=== PATIENT | male | born 1990 | race Caucasian/White ===

== ENCOUNTER 2016-09-28 18:23 | Emergency (ER) | payer MEDICAID ==
[2016-09-28] MEDS ORDERED: LIDOCAINE 1% 50 ML MDV SUBQ STA (19:15)
[2016-09-28] MEDS ORDERED: LIDOCAINE-MPF 1% 5 ML VIAL ONE (19:38)
== END 2016-09-28 20:26 | disposition home or self-care (01) ==
DX: S61.213A Laceration without foreign body of left middle finger without damage to nail, initial encounter (principal); W26.0XXA Contact with knife, initial encounter; F17.200 Nicotine dependence, unspecified, uncomplicated

== ENCOUNTER 2017-04-14 18:02 | Emergency (ER) | payer OTHER, MEDICAID ==
[2017-04-14] MEDS ORDERED: KETOROLAC 60 MG/2 ML VIAL IM STA (18:25)
[2017-04-14] MEDS ORDERED: HYDROcod/ACETAM 5/325 MG TABLET PO STA (18:25)
[2017-04-14] MEDS ORDERED: CYCLOBENZAPRINE 10 MG TABLET PO STA (18:25)
[2017-04-14] MEDS ORDERED: HYDROcod/ACETAM 5/325 MG TABLET ONE (18:33)
[2017-04-14] MEDS ORDERED: KETOROLAC 60 MG/2 ML VIAL ONE (18:33)
[2017-04-14] MEDS ORDERED: CYCLOBENZAPRINE 10 MG TABLET PO ONE (18:33)
--- NOTE | 2017-04-14 19:06 | XRAY Preliminary Report ---
Exam: XR Shoulder 3 View LT IMPRESSION: Normal shoulder radiography. [facility] SITE ID: [id number]
--- NOTE | 2017-04-14 19:08 | XRAY Report ---
EXAM: LEFT SHOULDER RADIOGRAPHY EXAM DATE: 04/14/2017 06:31 PM. CLINICAL HISTORY: Injury. Heavy equipment fell on shoulder. Anterior pain. COMPARISON: None. TECHNIQUE: 3 views. FINDINGS: Bones: Normal. No fracture or bone lesion. Joints: The glenohumeral and acromioclavicular joints are normal. Soft tissues: The visualized hemithorax is unremarkable. No soft tissue swelling. IMPRESSION: Normal shoulder radiography. [facility] Referring Provider Line: [phone] SITE ID: [id number]
--- NOTE | 2017-04-14 19:16 | ED Physician Documentation ---
PD HPI UPPER EXT INJURY - Stated complaint Stated Complaint: LT SHOULDER PX - Chief complaint Chief Complaint: Ext Problem - History obtained from History obtained from: Patient, Family - History of Present Illness Location: Left, Shoulder Type of injury: Blunt / blow (wooden beam fell on shoulder at work) Where injury occurred: Work Timing - onset: How many hours ago (2) Timing - duration: Hours (2) Timing - details: Abrupt onset Pain level max: 8 Pain level now: 8 Improved by: Rest, Ice, Immobilization Worsened by: Moving, Palpating Associated symptoms: No: Weakness, Numbness, Tingling, Swelling Contributing factors: Work related. No: Anticoagulated, Prior ortho surgery, Prosthetic joint Similar symptoms before: Has not had sx before Recently seen: Not recently seen Review of Systems Constitutional: denies: Fever, Chills Nose: denies: Rhinorrhea / runny nose, Congestion Throat: denies: Sore throat Cardiac: denies: Chest pain / pressure, Palpitations Respiratory: denies: Cough, Hemoptysis, Wheezing GI: denies: Nausea, Vomiting, Diarrhea Skin: denies: Rash Musculoskeletal: denies: Neck pain, Back pain Neurologic: denies: Focal weakness, Numbness, Headache PD PAST MEDICAL HISTORY - Past Medical History Past Medical History: Yes Cardiovascular: None Respiratory: Pneumonia Neuro: None Endocrine/Autoimmune: None GI: None : None HEENT: Chronic hearing loss Psych: None Musculoskeletal: None Derm: None - Past Surgical History Past Surgical History: No - Present Medications Home Medications: Ambulatory Orders Medication Instructions Recorded Confirmed Cyclobenzaprine [Flexeril] 10 mg PO TID PRN #20 tablet 04/14/17 Hydrocodone/Acetaminophen 1 - 2 each PO Q6H PRN #14 tablet 04/14/17 [Hydrocodon-Acetaminophen 5-325] Ibuprofen [Motrin] 800 mg PO Q8H PRN #30 tablet 04/14/17 - Allergies Allergies/Adverse Reactions: Allergies Allergy/AdvReac Type Severity Reaction Status Date / Time No Known Drug Allergies Allergy Verified 09/28/16 18:37 - Social History Does the pt smoke?: Yes Smoking Status: Current every day smoker Does the pt drink ETOH?: No Does the pt have substance abuse?: No - Immunizations Immunizations are current?: Yes PD ED PE NORMAL - Vitals Vital signs reviewed: Yes - General General: Alert and oriented X 3, No acute distress - HEENT HEENT: PERRL, Moist mucous membranes - Neck Neck: Supple, no meningeal sign, No bony TTP - Cardiac Cardiac: RRR - Respiratory Respiratory: No respiratory distress, Clear bilaterally - Abdomen Abdomen: Soft, Non tender, Non distended - Back Back: No spinal TTP - Derm Derm: No rash - Extremities Extremities: Other (TTP L trapezial ridge and over AC joint. No deformity. Mild pain with ROM of the shoulder. NVI including the axillary nerve. ) - Neuro Neuro: Alert and oriented X 3 - Psych Psych: Normal mood, Normal affect Results - Vitals Vitals: Vital Signs - 24 hr 04/14/17 04/14/17 18:05 19:29 Temperature 36.7 C Heart Rate 88 84 Respiratory 18 18 Rate Blood Pressure 122/80 126/81 H O2 Saturation 97 98 Oxygen O2 Source Room air - Rads (name of study) L shoulder xray Radiology: Prelim report reviewed, EMP read contemporaneously, See rad report ( normal) PD MEDICAL DECISION MAKING - ED course Complexity details: reviewed results, re-evaluated patient, considered differential, d/w patient ED course: Patient is a 27-year-old male who presents to the emergency department with a left shoulder injury after a beam fell on his shoulder at work. No acute findings on x-ray. Placed in a sling for comfort. Pain well controlled. Patient is well-appearing, nontoxic. Afebrile. Neurovascularly intact. No gross deformity. L and I paperwork filled out. Patient and family counseled regarding signs and symptoms for which I believe and urgent re-evaluation would be necessary. Patient with good understanding of and agreement to plan and is comfortable going home at this time This document was made in part using voice recognition software. While efforts are made to proofread this document, sound alike and grammatical errors may occur. Departure - Departure Disposition: 01 Home, Self Care Clinical Impression: Shoulder pain, left Qualifiers: Chronicity: acute Qualified Code(s): M25.512 - Pain in left shoulder Left shoulder strain Qualifiers: Encounter type: initial encounter Qualified Code(s): S46.912A - Strain of unspecified muscle, fascia and tendon at shoulder and upper arm level, left arm , initial encounter Condition: Good Instructions: ED Shoulder Pain [facility] Follow-Up: Radha Mckeon ARNP [Primary Care Provider] - Within 1 week Prescriptions: Cyclobenzaprine [Flexeril] 10 mg PO TID PRN #20 tablet PRN Reason: Spasms Hydrocodone/Acetaminophen [Hydrocodon-Acetaminophen 5-325] 1 - 2 each PO Q6H PRN #14 tablet PRN Reason: pain Ibuprofen [Motrin] 800 mg PO Q8H PRN #30 tablet PRN Reason: PAIN &/OR FEVER Comments: Return if you worsen. This should improve over the next few days. Wear the sling as needed for pain. Do not drink alcohol or drive while on narcotic pain medicine. Note that many narcotic pain relievers also contain tylenol/acetaminophen. Please ensure that your total dose of acetaminophen from all sources does not exceed 3 grams (3000mg) per day. You may constipated on this medication, take a stool softener such as "Colace" twice a day while you are on it. Also recommend a xpdi-bbm-ebzzdua laxative such as senna or MiraLAX any day that you do not have a bowel movement. If you received narcotic pain medication in the emergency department, do not drive or operate machinery for the next 24 hours. Forms: Activity restrictions Discharge Date/Time: 04/14/17 19:29
[2017-04-14 19:32] VITALS: BP 126/81
== END 2017-04-14 19:29 | disposition home or self-care (01) ==
LOC: ED 18:02
DX: S46.912A Strain of unspecified muscle, fascia and tendon at shoulder and upper arm level, left arm, initial encounter (principal); W20.8XXA Other cause of strike by thrown, projected or falling object, initial encounter; Y92.89 Other specified places as the place of occurrence of the external cause; Y99.0 Civilian activity done for income or pay; F17.200 Nicotine dependence, unspecified, uncomplicated
CPT/HCPCS: 1040M; 73030; 96372; 99283; A9270

== ENCOUNTER 2017-05-16 19:30 | Emergency (ER) | payer OTHER, MEDICAID ==
[2017-05-16 19:43] VITALS: BP 125/77
[2017-05-16] MEDS ORDERED: oxyCOD/ACETAMIN 5 MG/325 MG TABLET PO STA (19:57)
--- NOTE | 2017-05-16 19:59 | ED Physician Documentation ---
PD HPI UPPER EXT INJURY - Stated complaint Stated Complaint: L SHOULDER PAIN - Chief complaint Chief Complaint: Ext Problem - History obtained from History obtained from: Patient - History of Present Illness Location: Other (Something dropped on his shoulder couple months ago at work, he had x-rays then which were negative. It was slowly getting better but without clear recurrent trauma it is become more severe again with posterior shoulder pain and he acutely cannot range it at all.) Review of Systems Constitutional: denies: Fever, Chills Throat: denies: Sore throat Cardiac: denies: Chest pain / pressure, Palpitations Respiratory: denies: Dyspnea, Cough PD PAST MEDICAL HISTORY - Past Medical History Cardiovascular: None Respiratory: Pneumonia Neuro: None Endocrine/Autoimmune: None GI: None : None HEENT: Chronic hearing loss Psych: None Musculoskeletal: None Derm: None - Past Surgical History Past Surgical History: No - Present Medications Home Medications: Ambulatory Orders Medication Instructions Recorded Confirmed Meloxicam [Mobic] 7.5 mg PO BIDWM PRN #15 tablet 05/16/17 Oxycodone HCl/Acetaminophen 1 - 2 tab PO Q4H PRN #15 tablet 05/16/17 [Percocet 5-325 mg Tablet] - Allergies Allergies/Adverse Reactions: Allergies Allergy/AdvReac Type Severity Reaction Status Date / Time No Known Drug Allergies Allergy Verified 05/16/17 19:38 - Social History Does the pt smoke?: Yes Smoking Status: Current every day smoker Does the pt drink ETOH?: No Does the pt have substance abuse?: No - Immunizations Immunizations are current?: Yes PD ED PE NORMAL - Vitals Vital signs reviewed: Yes - General General: Alert and oriented X 3, No acute distress - Neck Neck: Supple, no meningeal sign, No bony TTP - Extremities Extremities: Other (Left shoulder is mildly tender posteriorly, there is no deformity. He is able to abduct to about 30 actively, about 45 passively. Positive supraspinatus testing. NVI in the wrist.) - Neuro Neuro: Alert and oriented X 3, Normal speech - Psych Psych: Normal mood, Normal affect Results - Vitals Vitals: Vital Signs - 24 hr 05/16/17 19:34 Temperature 36.6 C Heart Rate 83 Respiratory 16 Rate Blood Pressure 125/77 O2 Saturation 99 Oxygen O2 Source Room air PD MEDICAL DECISION MAKING - ED course ED course: 27-year-old with signs and symptoms consistent with rotator cuff tendinopathy, repeat x-rays are not indicated at this juncture. Exercises and follow-up with his primary care physician for referral to physical therapy were advised. Departure - Departure Disposition: 01 Home, Self Care Clinical Impression: Shoulder pain, left Qualifiers: Chronicity: acute Qualified Code(s): M25.512 - Pain in left shoulder Condition: Good Record reviewed to determine appropriate education?: Yes Instructions: ED Torn Rotator Cuff Prescriptions: Meloxicam [Mobic] 7.5 mg PO BIDWM PRN #15 tablet PRN Reason: Pain Oxycodone HCl/Acetaminophen [Percocet 5-325 mg Tablet] 1 - 2 tab PO Q4H PRN #15 tablet PRN Reason: Pain Comments: Follow-up with your primary care physician, likely for referral to physical therapy and/or orthopedics if not improving. Do not drink or drive while taking narcotic pain medication. Note that many narcotic pain relievers also contain Tylenol/acetaminophen. Please ensure that your total dose of acetaminophen from all sources does not exceed 3 g (3000 mg) per day. You may get constipated while on this medication. Take a stool softener such as Colace twice a day while you are on it. Also add an ivrc-lol-hwsydpw laxative such as senna or MiraLAX on any day that you do not have a bowel movement. If you received a narcotic pain medication or sedative while in the emergency department, do not drive for the next 24 hours. Forms: Activity restrictions
[2017-05-16] MEDS ORDERED: oxyCOD/ACETAMIN 5 MG/325 MG TABLET PO ONE (20:04)
== END 2017-05-16 20:12 | disposition home or self-care (01) ==
LOC: ED 19:30
DX: M25.512 Pain in left shoulder (principal); F17.200 Nicotine dependence, unspecified, uncomplicated
CPT/HCPCS: 99282; 99283; A9270

== ENCOUNTER 2017-05-19 12:47 | Emergency (ER) | payer MEDICAID ==
[2017-05-19] MEDS ORDERED: KETOROLAC 60 MG/2 ML VIAL IM STA (13:20)
[2017-05-19] MEDS ORDERED: DEXAMETHASONE 10 MG/ML VIAL PO STA (13:20)
[2017-05-19] MEDS ORDERED: KETOROLAC 60 MG/2 ML VIAL ONE (13:25)
[2017-05-19] MEDS ORDERED: DEXAMETHASONE 10 MG/ML VIAL ONE (13:25)
--- NOTE | 2017-05-19 13:59 | XRAY Preliminary Report ---
Exam: XR Shoulder 3 View LT IMPRESSION: Normal shoulder radiography. [facility] SITE ID: [id number]
--- NOTE | 2017-05-19 14:02 | XRAY Report ---
EXAM: LEFT SHOULDER RADIOGRAPHY EXAM DATE: 05/19/2017 01:41 PM. CLINICAL HISTORY: Deltoid pain and pain over suprspinatous. . COMPARISON: 04/14/2017. TECHNIQUE: 3 views. FINDINGS: Bones: Normal. No fracture or bone lesion. Joints: The glenohumeral and acromioclavicular joints are normal. Soft tissues: The visualized hemithorax is unremarkable. No soft tissue swelling. IMPRESSION: Normal shoulder radiography. [facility] Referring Provider Line: [phone] SITE ID: [id number]
--- NOTE | 2017-05-19 14:16 | ED Physician Documentation ---
PD HPI UPPER EXT INJURY - Stated complaint Stated Complaint: SHOULDER PX - Chief complaint Chief Complaint: Ext Problem - History obtained from History obtained from: Patient, Family - History of Present Illness Location: Left, Shoulder Type of injury: Blunt / blow Where injury occurred: Work Timing - onset: How many months ago (2) Timing - details: Abrupt onset, Still present Improved by: Rest, Ice, Immobilization Worsened by: Moving, Palpating Associated symptoms: No: Weakness, Numbness, Tingling, Swelling Similar symptoms before: Diagnosis (rotator cuff injury) Recently seen: Emergency Dept (4 days ago with re-injury to the area) - Additonal information Additional information: 27-year-old male that works at [employer] dropped a 4 x 6 wooden beam on his left shoulder 5 weeks ago. He had pain in the area initially was seen in the emergency department had imaging done Without evidence of fracture. He has been back to work and has been favoring his shoulder and about 4 days ago he noted a crunching sound in his shoulder with some heavy lifting and since then has had increased unrelenting pain in the shoulder. He has returned to the emergency department. He did get some pain medication that helped with the pain but he is not able to move his shoulder through any reasonable range of motion. On the second visit he was diagnosed with a injury to the rotator cuff. He is not able to hold the arm in abduction by himself. Review of Systems Constitutional: denies: Fever, Chills Eyes: denies: Decreased vision Ears: denies: Ear pain Nose: denies: Congestion Throat: denies: Sore throat Cardiac: denies: Chest pain / pressure, Palpitations Respiratory: denies: Dyspnea, Cough GI: denies: Abdominal Pain, Nausea, Vomiting : denies: Dysuria Skin: denies: Rash Musculoskeletal: reports: Neck pain, Back pain, Extremity pain, Joint pain. denies: Extremity swelling, Joint swelling Neurologic: reports: Numbness (To the second third and fourth digit of the left hand). denies: Generalized weakness, Focal weakness PD PAST MEDICAL HISTORY - Past Medical History Cardiovascular: None Respiratory: Pneumonia Neuro: None Endocrine/Autoimmune: None GI: None : None HEENT: Chronic hearing loss Psych: None Musculoskeletal: None Derm: None - Past Surgical History Past Surgical History: No - Present Medications Home Medications: Ambulatory Orders Medication Instructions Recorded Confirmed Meloxicam [Mobic] 7.5 mg PO BIDWM PRN #15 tablet 05/16/17 05/19/17 Oxycodone HCl/Acetaminophen 1 - 2 tab PO Q4H PRN #15 tablet 05/16/17 05/19/17 [Percocet 5-325 mg Tablet] oxyCODONE [Roxicodone] 5 - 10 mg PO Q4-6H PRN #15 tablet 05/19/17 - Allergies Allergies/Adverse Reactions: Allergies Allergy/AdvReac Type Severity Reaction Status Date / Time No Known Drug Allergies Allergy Verified 05/16/17 19:38 - Social History Does the pt smoke?: Yes Smoking Status: Current every day smoker Does the pt drink ETOH?: No Does the pt have substance abuse?: No - Immunizations Immunizations are current?: Yes PD ED PE NORMAL - Vitals Vital signs reviewed: Yes (normal ) - General General: Alert and oriented X 3, Well developed/nourished, Other (Appears to be in pain) - HEENT HEENT: Atraumatic, PERRL - Neck Neck: Supple, no meningeal sign, Other (There is some bony tenderness over the lower cervical spine ) - Respiratory Respiratory: No respiratory distress - Back Back: No CVA TTP, No spinal TTP - Derm Derm: Normal color, Warm and dry, No rash - Extremities Extremities: No deformity, No edema, Other (There is pain to the deltoid anterior and posterior and there is tenderness to the supraspinatous and to the scapula. There is normal passive ROM with pain and the patient is able to hold the arm in abduction but with pain. ) - Neuro Neuro: Alert and oriented X 3, No motor deficit, No sensory deficit, Normal speech - Psych Psych: Normal mood, Normal affect Results - Vitals Vitals: Vital Signs - 24 hr 05/19/17 05/19/17 05/19/17 12:57 13:55 15:24 Temperature 36.8 C 36.6 C 36.6 C Heart Rate 84 83 83 Respiratory 16 18 18 Rate Blood Pressure 118/74 120/78 132/85 H O2 Saturation 99 97 100 Oxygen O2 Source Room air - Rads (name of study) left shoulder Radiology: Prelim report reviewed (Impression: Normal shoulder radiography.), EMP read indepedently, See rad report scapula Radiology: Prelim report reviewed (Impression: Normal scapula radiography), EMP read indepedently, See rad report PD MEDICAL DECISION MAKING - ED course Complexity details: reviewed results, re-evaluated patient, considered differential, d/w patient, d/w family ED course: 27-year-old male with a injury to his left shoulder with a direct contusion does not appear to have AC separation or evident obvious fracture. He does have reduced range of motion and pain in the supraspinatus, the deltoid, the neck, and the scapula. My concern is for A bursitis and he is treated in the emergency department with dexamethasone orally as well as some Toradol.The patient did hear a crunching sound on this last increase in his pain from an injury 4 days ago and repeat x-rays are without evidence of obvious fracture. I am concerned about a crack in the scapula vs nutrient vessel and I have ordered specific scapular films and these are without fracture as well. He is placed into a sling and asked to follow up with ortho. Departure - Departure Disposition: 01 Home, Self Care Clinical Impression: Bursitis Qualifiers: Bursitis location: shoulder Laterality: left Qualified Code(s): M75.52 - Bursitis of left shoulder Condition: Stable Instructions: ED Bursitis Follow-Up: Radha Mckeon ARNP [Primary Care Provider] - [facility] [Provider Group] Prescriptions: oxyCODONE [Roxicodone] 5 - 10 mg PO Q4-6H PRN #15 tablet PRN Reason: Pain Forms: Activity restrictions Discharge Date/Time: 05/19/17 15:24
--- NOTE | 2017-05-19 14:52 | XRAY Preliminary Report ---
Exam: XR Scapula 2 View LT IMPRESSION: Normal scapula radiography. [facility] SITE ID: [id number]
--- NOTE | 2017-05-19 14:55 | XRAY Report ---
EXAM: LEFT SCAPULA RADIOGRAPHY EXAM DATE: 05/19/2017 02:37 PM. CLINICAL HISTORY: Pain COMPARISON: None. TECHNIQUE: 2 views. FINDINGS: Bones: Normal. No fracture or bone lesion. Joints: The glenohumeral and acromioclavicular joints are normal and without subluxation. Other: The visualized hemithorax is unremarkable. IMPRESSION: Normal scapula radiography. [facility] Referring Provider Line: [phone] SITE ID: [id number]
[2017-05-19 15:26] VITALS: BP 132/85
== END 2017-05-19 15:24 | disposition home or self-care (01) ==
LOC: ED 12:47
DX: M75.52 Bursitis of left shoulder (principal); S40.012A Contusion of left shoulder, initial encounter; X58.XXXA Exposure to other specified factors, initial encounter; F17.200 Nicotine dependence, unspecified, uncomplicated
CPT/HCPCS: 96372; 99283

== ENCOUNTER 2017-07-05 15:19 | Emergency (ER) | payer OTHER, MEDICAID ==
[2017-07-05] MEDS ORDERED: IBUPROFEN 400 MG TABLET PO STA (16:04)
[2017-07-05] MEDS ORDERED: LIDOCAINE PATCH 5% TOP STA (16:04)
[2017-07-05] MEDS ORDERED: CYCLOBENZAPRINE 10 MG TABLET PO STA (16:04)
[2017-07-05] MEDS ORDERED: CYCLOBENZAPRINE 10 MG TABLET PO ONE (16:20)
[2017-07-05] MEDS ORDERED: LIDOCAINE PATCH 5% TOP ONE (16:20)
[2017-07-05] MEDS ORDERED: IBUPROFEN 400 MG TABLET PO ONE (16:20)
[2017-07-05] MEDS ORDERED: traMADol 50 MG TABLET PO STA (17:42)
[2017-07-05] MEDS ORDERED: traMADol 50 MG TABLET PO ONE (17:54)
[2017-07-05 18:06] VITALS: BP 127/83
--- NOTE | 2017-07-05 18:29 | XRAY Preliminary Report ---
Exam: XR SHOULDER 3 VIEW LT IMPRESSION: Normal shoulder radiography. [facility] SITE ID: [id number]
--- NOTE | 2017-07-05 18:33 | XRAY Report ---
EXAM: LEFT SHOULDER RADIOGRAPHY EXAM DATE: 07/05/2017 05:00 p.m. CLINICAL HISTORY: Overuse of the left shoulder. Left shoulder pain for 3 months. Increasing pain for one day. COMPARISON: 05/19/2017. 04/14/2017. TECHNIQUE: 3 views. FINDINGS: Bones: Normal. No fracture or bone lesion. Joints: The glenohumeral and acromioclavicular joints are normal. Soft tissues: The visualized hemithorax is unremarkable. No soft tissue swelling. IMPRESSION: Normal shoulder radiography. [facility] Referring Provider Line: [phone] SITE ID: [id number]
--- NOTE | 2017-07-05 18:40 | ED Physician Documentation ---
History of Present Illness - Stated complaint Stated Complaint: LT SHOULDER INJ - Chief complaint Chief Complaint: Ext Problem - Additonal information Additional information: hx from pt 27 y/o male hx rotator cuff and bursitis today tipping over a wheelbarrow felt a pop and severe pain Review of Systems Musculoskeletal: reports: Joint pain PD PAST MEDICAL HISTORY - Past Medical History Past Medical History: Yes Cardiovascular: None Respiratory: Pneumonia Neuro: None Endocrine/Autoimmune: None GI: None : None HEENT: Chronic hearing loss Psych: None Musculoskeletal: None Derm: None - Past Surgical History Past Surgical History: No - Present Medications Home Medications: Ambulatory Orders Medication Instructions Recorded Confirmed No Known Home Medications [No 07/05/17 07/05/17 Known Home Medications] - Allergies Allergies/Adverse Reactions: Allergies Allergy/AdvReac Type Severity Reaction Status Date / Time No Known Drug Allergies Allergy Verified 07/05/17 15:29 - Social History Does the pt smoke?: Yes Smoking Status: Current every day smoker Does the pt drink ETOH?: No Does the pt have substance abuse?: No - Immunizations Immunizations are current?: Yes PD ED PE NORMAL - General General: Alert and oriented X 3, No acute distress - Cardiac Cardiac: RRR - Respiratory Respiratory: No respiratory distress, Clear bilaterally - Extremities Extremities: Other (L shoulder: no defmority - TTP distal clavicle and AC joint , TTP ant and lateral and ruperior shoulder ST, some mm toghtness to trap, limited ROM mayco ext and ABD 2/2 pain, MSV intact except slight tingling to fingers 3 4 5) Results - Vitals Vitals: Vital Signs - 24 hr 07/05/17 07/05/17 15:26 18:05 Temperature 36.8 C Heart Rate 82 59 L Respiratory 18 15 Rate Blood Pressure 131/85 H 127/83 H O2 Saturation 99 100 Oxygen O2 Source Room air - Rads (name of study) shoulder Radiology: See rad report (neg) Departure - Departure Disposition: 01 Home, Self Care Clinical Impression: Sprain of shoulder, left Qualifiers: Encounter type: initial encounter Shoulder sprain type: unspecified sprain Qualified Code(s): S43.402A - Unspecified sprain of left shoulder joint, initial encounter Condition: Good Instructions: ED Sprain Shoulder Follow-Up: Radha Mckeon ARNP [Primary Care Provider] - [facility] [Provider Group] Comments: The xray is fine - no fracture or dislocation. The pain seems to be coming from the soft tissues (muscles tendon ligaments) of your AC and shoulder joints Given your ongoing problems with this shoulder I have referred you to orthopedics for further evaluation And I strongly recommend you get into physical therapy - call your insurance company to ask how that process works In the meantime I recommend motrin for mild pain/inflammation, soma for muscle spasm, lidocaine patches up to 12 hr a day for pain, and if needed tramadol for severe pain You can wear the sling for some extra support but it is important to move your shoulder several times a day to prevent scar tissue and adhesions from forming and causing you a "frozen shoulder" Forms: Activity restrictions
== END 2017-07-05 18:59 | disposition home or self-care (01) ==
LOC: ED 15:19
DX: S43.402A Unspecified sprain of left shoulder joint, initial encounter (principal); X50.0XXA Overexertion from strenuous movement or load, initial encounter; F17.200 Nicotine dependence, unspecified, uncomplicated
CPT/HCPCS: 73030; 99283; A9270

== ENCOUNTER 2017-10-06 16:20 | Emergency (ER) | payer BC, MEDICAID, OTHER ==
[2017-10-06 16:29] VITALS: BP 137/79
[2017-10-06] MEDS ORDERED: oxyCODONE/ACET 5/325 Prepack 4 PO STA (16:46)
--- NOTE | 2017-10-06 16:49 | ED Physician Documentation ---
PD HPI UPPER EXT INJURY - Stated complaint Stated Complaint: SHOULDER AND BACK PX - Chief complaint Chief Complaint: Ext Problem - History obtained from History obtained from: Patient - History of Present Illness Location: Other (About 4 months ago he injured his shoulder at work and has been having intermittent but sometimes severe pain and decreased range of motion of the left shoulder ever since. He saw his doctor and was referred to physical therapy but that has not been started yet. Previous imaging has been negative. About a week ago he says he was doing well and had recovered a lot of his range of motion but not completely. He pulled down a garage door and since then has had increasing pain of the posterior left shoulder and difficulty with range of motion again and numbness of the left hand) Review of Systems Constitutional: reports: Reviewed and negative Cardiac: reports: Reviewed and negative Respiratory: reports: Reviewed and negative PD PAST MEDICAL HISTORY - Past Medical History Past Medical History: Yes Cardiovascular: None Respiratory: Pneumonia Neuro: None Endocrine/Autoimmune: None GI: None : None HEENT: Chronic hearing loss Psych: None Musculoskeletal: None Derm: None - Past Surgical History Past Surgical History: No - Present Medications Home Medications: Ambulatory Orders Medication Instructions Recorded Confirmed Lidocaine Patch 5% [Lidoderm Patch] 1 each TOP DAILY PRN #10 patch 07/05/17 Ibuprofen [Motrin] 800 mg PO Q6H PRN 10/06/17 10/06/17 Oxycodone HCl/Acetaminophen 1 - 2 tab PO Q4H PRN #15 tablet 10/06/17 [Percocet 5-325 mg Tablet] - Allergies Allergies/Adverse Reactions: Allergies Allergy/AdvReac Type Severity Reaction Status Date / Time No Known Drug Allergies Allergy Verified 10/06/17 16:29 - Social History Does the pt smoke?: Yes Smoking Status: Current every day smoker Does the pt drink ETOH?: No Does the pt have substance abuse?: No - Immunizations Immunizations are current?: Yes - POLST Patient has POLST: No PD ED PE NORMAL - Vitals Vital signs reviewed: Yes - General General: Alert and oriented X 3, No acute distress - Extremities Extremities: Other (Left shoulder is without deformity, internal and external rotation passively is relatively painless and I am able to abduct him passively but he cannot abduct actively. He does have partial incomplete numbness throughout the left hand and arm that does not follow a dermatomal distribution but strength in ehs engineer, thumb extension, and interossei are equal and symmetric.) - Neuro Neuro: Alert and oriented X 3, Normal speech Results - Vitals Vitals: Vital Signs - 24 hr 10/06/17 16:24 Temperature 36.9 C Heart Rate 110 H Respiratory 18 Rate Blood Pressure 137/79 H O2 Saturation 96 Oxygen O2 Source Room air PD MEDICAL DECISION MAKING - ED course ED course: Some components of this history and physical are consistent with rotator cuff pathology and some are more consistent with cervical radiculopathy. Advised that outpatient physical therapy is a an appropriate initial step. Departure - Departure Disposition: Home, Self Care Clinical Impression: Rotator cuff tear, left Qualifiers: Rotator cuff tear extent: unspecified tear extent Qualified Code(s): M75.102 - Unspecified rotator cuff tear or rupture of left shoulder, not specified as traumatic Condition: Good Record reviewed to determine appropriate education?: Yes Instructions: ED Torn Rotator Cuff Prescriptions: Oxycodone HCl/Acetaminophen [Percocet 5-325 mg Tablet] 1 - 2 tab PO Q4H PRN #15 tablet PRN Reason: Pain Comments: Call your doctor to arrange a follow-up appointment, make the next available appointment. In the interim, return anytime if worse or if new symptoms develop. Your blood pressure was elevated today on check into the emergency department. This does not mean that you have hypertension, it is a common phenomenon to come to the emergency department and have elevated blood pressure. I recommend that you see your primary care physician within the week to have it rechecked when you are feeling better. Do not drink or drive while taking narcotic pain medication. Note that many narcotic pain relievers also contain Tylenol/acetaminophen. Please ensure that your total dose of acetaminophen from all sources does not exceed 3 g (3000 mg) per day. You may get constipated while on this medication. Take a stool softener such as Colace twice a day while you are on it. Also add an [id number] laxative such as senna or MiraLAX on any day that you do not have a bowel movement. If you received a narcotic pain medication or sedative while in the emergency department, do not drive for the next 24 hours. The policy of this emergency department is to not give more than 3 prescriptions for narcotics or other controlled substances in any 1 year. You have already surpassed this benchmark and we cannot prescribe narcotics for you. I encourage you to follow up with your primary care physician or to establish care with a primary care physician for ongoing pain management. You are always welcome to seek emergency care here for this or new issues but there will likely be limitations in the prescription of narcotic pain medication.
== END 2017-10-06 16:56 | disposition home or self-care (01) ==
LOC: ED 16:20
DX: M75.102 Unspecified rotator cuff tear or rupture of left shoulder, not specified as traumatic (principal); M54.12 Radiculopathy, cervical region; F17.200 Nicotine dependence, unspecified, uncomplicated
CPT/HCPCS: 99283

== ENCOUNTER 2017-12-14 17:21 | Emergency (ER) | payer OTHER ==
[2017-12-14 17:31] VITALS: BP 139/100
--- NOTE | 2017-12-14 17:53 | ED Physician Documentation ---
History of Present Illness - Stated complaint Stated Complaint: RASH - Chief complaint Chief Complaint: Heent - History obtained from History obtained from: Patient - History of Present Illness Timing: Other (5 days of an itchy rash on the arms and trunk but also the top of the feet. Couple days prior to that [place] Review of Systems Constitutional: denies: Fever, Chills Throat: denies: Sore throat Cardiac: denies: Chest pain / pressure, Palpitations Respiratory: denies: Dyspnea, Cough PD PAST MEDICAL HISTORY - Past Medical History Cardiovascular: None Respiratory: Pneumonia Neuro: None Endocrine/Autoimmune: None GI: None : None HEENT: Chronic hearing loss Psych: None Musculoskeletal: None Derm: None - Past Surgical History Past Surgical History: No - Present Medications Home Medications: Ambulatory Orders Medication Instructions Recorded Confirmed Cephalexin [Keflex] 500 mg PO QID #40 capsule 12/14/17 Nystatin/Triamcin 1 gm TP BID #1 oint...g. 12/14/17 [Nystatin-Triamcinolone Ointm] hydrOXYzine PAMOATE [Vistaril] 25 mg PO Q6H PRN #15 capsule 12/14/17 predniSONE [Deltasone] 60 mg PO DAILY 5 Days tablet 12/14/17 - Allergies Allergies/Adverse Reactions: Allergies Allergy/AdvReac Type Severity Reaction Status Date / Time No Known Drug Allergies Allergy Verified 10/06/17 16:29 - Social History Does the pt smoke?: Yes Smoking Status: Current every day smoker Does the pt drink ETOH?: No Does the pt have substance abuse?: No - Immunizations Immunizations are current?: Yes - POLST Patient has POLST: No PD ED PE NORMAL - Vitals Vital signs reviewed: Yes - General General: Alert and oriented X 3, No acute distress - Derm Derm: Other (He has a diffuse rash that looks like contact dermatitis, it is most market on the top of the feet with some weeping and superinfected areas. It is also on the trunk. It spares the palms and soles.) - Neuro Neuro: Alert and oriented X 3, Normal speech Results - Vitals Vitals: Vital Signs - 24 hr 12/14/17 17:27 Temperature 36.9 C Heart Rate 94 Respiratory 18 Rate Blood Pressure 139/100 H O2 Saturation 100 Oxygen O2 Source Room air Departure - Departure Disposition: 01 Home, Self Care Clinical Impression: Contact dermatitis Qualifiers: Contact dermatitis type: allergic Contact dermatitis trigger: unspecified trigger Qualified Code(s): L23.9 - Allergic contact dermatitis, unspecified cause Condition: Good Record reviewed to determine appropriate education?: Yes Instructions: ED Dermatitis Contact Prescriptions: Cephalexin [Keflex] 500 mg PO QID #40 capsule hydrOXYzine PAMOATE [Vistaril] 25 mg PO Q6H PRN #15 capsule PRN Reason: Itching Nystatin/Triamcin [Nystatin-Triamcinolone Ointm] 1 gm TP BID #1 oint...g. predniSONE [Deltasone] 60 mg PO DAILY 5 Days tablet Comments: Call your doctor to arrange a follow-up appointment, make the next available appointment. In the interim, return anytime if worse or if new symptoms develop. Your blood pressure was elevated today on check into the emergency department. This does not mean that you have hypertension, it is a common phenomenon to come to the emergency department and have elevated blood pressure. I recommend that you see your primary care physician within the week to have it rechecked when you are feeling better.
== END 2017-12-14 18:04 | disposition home or self-care (01) ==
LOC: ED 17:21
DX: L23.9 Allergic contact dermatitis, unspecified cause (principal); R03.0 Elevated blood-pressure reading, without diagnosis of hypertension; F17.200 Nicotine dependence, unspecified, uncomplicated
CPT/HCPCS: 99281; 99283